=== PATIENT | male | born 1960 | race Two or more races ===

== ENCOUNTER 2019-03-14 17:24 | Inpatient (IN) | payer MEDICARE, OTHER ==
[~2019-03-14] VITALS: Ht 182.9 cm; Wt 78.0 kg
[2019-03-14] MEDS ORDERED: ACETAMINOPHEN 650 MG/SUPP.RECT RC ONE ×2 (17:30→17:51)
[2019-03-14] MEDS ORDERED: IV NS 0.9% 1,000 ML BAG IV ONE (17:30)
[2019-03-14] MEDS ORDERED: IPRATROPIUM NEB FS 0.5 MG/2.5 ML AMPUL.NEB ONE (17:38)
[2019-03-14] MEDS ORDERED: ALBUTEROL FS 2.5 MG/3 ML VIAL.NEB ONE (17:38)
--- NOTE | 2019-03-14 17:38 | NUR ---
BIB 39 FROM THE BUS STOP PT IS UNRESPONSIVE AND DROOLING, UKNOWN TIME. PATIENT UNRESPONSIVE, CLOTHING REMOVED, PATIENT'S SKIN FELT HOT. PATIENT CONNECTED TO THE MONITOR, IV LINE ESTABLISHED ON LEFT HAND BY PARAMEDICS, ANOTHER LINE ESTABLISHED. RECTAL TEMP SHOWS 104. WILL MONITOR.
[2019-03-14 17:46] LABS: BASOPHILS # (AUTO) 0.1 /CMM (0.0-0.2); BASOPHILS % (AUTO) 1.3 % (0.0-2.0); EOSINOPHILS % (AUTO) 3.3 % (0.0-6.0); HEMATOCRIT 36 % (39-51); HEMOGLOBIN 12.3 g/dL (13.5-17.5); LYMPHOCYTES # (AUTO) 1.2 /CMM (0.8-4.8); MEAN CORPUSCULAR HGB CONC 34 g/dl (31.0-36.0); MEAN CORPUSCULAR VOLUME 94 fL (80-96); MONOCYTES # (AUTO) 0.3 /CMM (0.1-1.30); MONOCYTES % (AUTO) 6.9 % (2.0-12.0); NEUTROPHILS # (AUTO) 2.2 /CMM (1.8-8.9); NEUTROPHILS % (AUTO) 56.5 % (43.0-81.0); PLATELET COUNT (AUTO) 115 /CMM (150-450); RED BLOOD CELL COUNT(AUTO) 3.82 MIL/uL (4.5-6.0); WHITE BLOOD COUNT (AUTO) 3.9 K/uL (4.3-11.0)
[2019-03-14 17:55] LABS: CALCIUM, SERUM 8.5 mg/dL (8.5-10.1); CARBON DIOXIDE 23 mmol/L (21-32); CHLORIDE 108 mmol/L (98-107); GLUCOSE 101 mg/dL (74-106); POTASSIUM 4.3 mmol/L (3.5-5.1); SODIUM SERUM 143 mmol/L (136-145); UREA NITROGEN, BLOOD 35 mg/dL (7-18)
--- NOTE | 2019-03-14 17:55 | NUR ---
COOLING MEASURES PROVIDED.
[2019-03-14 18:01] LABS: ALANINE AMINOTRANSFERASE 21 U/L (12-78); ALBUMIN 2.6 g/dL (3.4-5.0); ALKALINE PHOSPHATASE 81 U/L (46-116); ASPARTATE AMINOTRANSFERASE 22 U/L (15-37); BILIRUBIN,DIRECT 0.1 mg/dL (0.0-0.2); BILIRUBIN,TOTAL 0.3 mg/dL (0.2-1.0); TOTAL PROTEIN, SERUM 6.3 g/dL (6.4-8.2)
[2019-03-14] MEDS ORDERED: VANCOMYCIN 1 GM in IV D5W 250 ML IV ONE (18:30)
[2019-03-14] MEDS ORDERED: CEFTRIAXONE 1GM BAG (ER ONLY) 1 GM/50 ML PIGGYBACK IV ONE (18:30)
--- NOTE | 2019-03-14 18:30 | NUR ---
Patient seen by Dr. Hawtohrne, and discontinued the IV antibiotic. Patient more alert and verbally responsive. Able to remember the event before he passed out. Patient able to urinate on a urinal. Patient in stable condition.
[2019-03-14 18:31] LABS: APPEARANCE,URINE Clear (CLEAR); BILIRUBIN,URINE Negative (NEGATIVE); BLOOD, URINE Negative Ery/uL (NEGATIVE); COLOR,URINE Yellow (YELLOW); KETONES,URINE Negative (NEGATIVE); LEUKOCYTE ESTERASE ,URINE Negative (NEGATIVE); NITRITE, URINE Negative (NEGATIVE); PH,URINE 6.5 (5.0-8.0); PROTEIN,URINE Negative (NEGATIVE); UGLUCOSE Negative (NEGATIVE); UROBILINOGEN,URINE 0.2 EU/dL (0.2)
[2019-03-14] MEDS ORDERED: LORA1TAB PO (18:31)
[2019-03-14] MEDS ORDERED: INSU100V7 SQ (18:31)
[2019-03-14] MEDS ORDERED: OXYB10TA PO (18:31)
[2019-03-14] MEDS ORDERED: ARIP30TA3 PO (18:31)
[2019-03-14] MEDS ORDERED: CLOZ100T32 PO (18:31)
[2019-03-14] MEDS ORDERED: DIVA500T54 PO (18:31)
[2019-03-14] MEDS ORDERED: INSU100V27 SQ (18:31)
[2019-03-14] MEDS ORDERED: TAMS-12 PO (18:31)
--- NOTE | 2019-03-14 18:39 | NUR ---
PANEL ON-CALL PAGED
--- NOTE | 2019-03-14 19:32 | NUR ---
CALLED NURSING SUP REQUESTED TELE BED
--- NOTE | 2019-03-14 19:33 | NUR ---
CALLED NURSING SUP FOR TELE BED
--- NOTE | 2019-03-14 19:45 | NUR ---
ASSUMED CARE. RECEIVED REPORT FROM AM SHIFT [facility] PANIAG[facility]. PT RESTING QUIETLY, NO ACUTE DISTRESS NOTED, RESP EVEN AND UNLABORED. PT AAOX4. PT REMAINS ON CARDIAC MONITORING, CONTINUOUS POX. CALL LIGHT WITHIN REACH. WILL CONTINUE TO MONITOR PT CLOSELY. PT AWARE OF PENDING HOSPITAL ADMISSION AND AGREED. AWAIGINT BED AVAILABILITY.
--- NOTE | 2019-03-14 19:45 | NUR ---
PATIENT ENDORSED TO ED FOR ELIZABETH.
--- NOTE | 2019-03-14 20:08 | NUR ---
TELE 323-2
--- NOTE | 2019-03-14 20:20 | NUR ---
REPORT CALLED TO [facility]. WILL TRANSPORT PT VIA [facility]S PROTOCOL.
[2019-03-14 21:05] VITALS: BP 121/52
--- NOTE | 2019-03-14 21:07 | NUR ---
PT TRANSPORTED TO [place] [id number] VIA ACLS PROTOCOL.
--- NOTE | 2019-03-14 21:20 | NUR ---
RECEIVE PT AT 2105 VIA [facility] FROM [facility], PT A/O X 3, RESPIRATIONS EVEN AND UNLABORED. NO S/S OF DISTRESS AND STABLE TOLERATING ROOM AIR. NO COMPLAIN OF CHEST PAIN, HEADACHE AND N, V. HEAD TO TOE ASSESSMENT IS DONE. PER PT VERBALIZED HE HAS NO KNOWN ALLERGIES. KEPT CLEAN AND DRY AND COMFORTABLE SAFETY MEASURES AT ALL TIMES WILL CONT TO MONITOR.
--- NOTE | 2019-03-14 21:35 | NUR ---
PAGED SONA MOODY FOR ADMITTING ORDERS AWAITING CALL BACK
--- NOTE | 2019-03-14 22:00 | NUR ---
FF UP ADMITTING ORDERS
[2019-03-14] MEDS ORDERED: IV NS 0.9% 1,000 ML IV PRN (22:17)
[2019-03-14 22:30] VITALS: BP 121/52
[2019-03-14] MEDS ORDERED: MAGNESIUM HYDROXIDE 30 ML UDC PO PRN (22:30)
[2019-03-14] MEDS ORDERED: MAG HYDROX/AL HYDROX/SIMETH 30 ML UDC PO PRN (22:30)
[2019-03-14] MEDS ORDERED: ONDANSETRON HCL/PF 4 MG/2 ML VIAL IVP PRN (22:30)
[2019-03-14] MEDS ORDERED: LORAZEPAM 1 MG TABLET PO PRN (22:30)
[2019-03-14] MEDS ORDERED: ACETAMINOPHEN 325 MG TABLET PO PRN (22:30)
[2019-03-14] MEDS ORDERED: Z GUARD REMEDY 2 OZ OINT TP PRN (22:30)
[2019-03-14] MEDS ORDERED: DIVALPROEX SODIUM 500 MG TABLET.DR PO ONE (23:00)
[2019-03-14] MEDS ORDERED: OXYBUTYNIN CHLORIDE ER 5 MG TAB PO SCH (23:00)
[2019-03-15] VITALS: BP 113/73
[2019-03-15 04:00] VITALS: BP 119/68
--- NOTE | 2019-03-15 06:11 | NUR ---
ASLEEP AND EASILY AWAKEN, NO HYPERTHERMIA, TEMPERATURE WNL. NO SIGNIFICANT CHANGES THROUGHOUT THE SHIFT. RESPIRATION EVEN AND UNLABORED. ON CARDIAC MONITORING WITH SINUS BRADYCARDIA 60'S HR IN THE TELE MONITOR. KEPT CLEAN AND DRY AND COMFORTABLE. NEEDS ATTENDED AND ANTICIPATED, NURSING CARE RENDERED, NO C/O PAIN AT THIS TIME. OFFLOAD HEELS AND ELBOWS. SAFETY MEASURES AT ALL TIMES. ENDORSE TO THE NEXT SHIFT.
[2019-03-15 06:50] LABS: BASOPHILS % (AUTO) 0.3 % (0.0-2.0); EOSINOPHILS % (AUTO) 1.7 % (0.0-6.0); HEMATOCRIT 36 % (39-51); HEMOGLOBIN 12.3 g/dL (13.5-17.5); LYMPHOCYTES # (AUTO) 2.4 /CMM (0.8-4.8); LYMPHOCYTES % (AUTO) 41.5 % (20.0-44.0); MEAN CORPUSCULAR HGB CONC 34 g/dl (31.0-36.0); MEAN CORPUSCULAR VOLUME 95 fL (80-96); MONOCYTES # (AUTO) 0.7 /CMM (0.1-1.30); MONOCYTES % (AUTO) 11.7 % (2.0-12.0); NEUTROPHILS # (AUTO) 2.6 /CMM (1.8-8.9); NEUTROPHILS % (AUTO) 44.8 % (43.0-81.0); PLATELET COUNT (AUTO) 92 /CMM (150-450); RED BLOOD CELL COUNT(AUTO) 3.82 MIL/uL (4.5-6.0); WHITE BLOOD COUNT (AUTO) 5.8 K/uL (4.3-11.0)
--- NOTE | 2019-03-15 06:50 | NUR ---
Blood sugar checked at 48 mg/dl protocol initiated Laura gibbs ordered D50% IVP achs blood sugar less than 60.
[2019-03-15] MEDS ORDERED: DEXTROSE 10% IN WATER 250 ML BAG IV ONE (07:00)
[2019-03-15] MEDS ORDERED: DEXTROSE 10% IN WATER 250 ML IV ONE (07:00)
[2019-03-15] MEDS ORDERED: DEXTROSE 50%-WATER 50 ML DISP.SYRIN IV PRN (07:00)
[2019-03-15 07:08] LABS: CALCIUM, SERUM 7.8 mg/dL (8.5-10.1); CREATININE 1.4 mg/dL (0.6-1.3); MAGNESIUM 1.9 mg/dL (1.8-2.4); PHOSPHORUS 3.2 mg/dL (2.5-4.9); POTASSIUM 4.3 mmol/L (3.5-5.1)
[2019-03-15 07:09] LABS: THYROID STIMULATING HORMONE 1.802 uIU/mL (0.358-3.74)
--- NOTE | 2019-03-15 07:09 | NUR ---
IV D10% 250 as replacement of D50 per pharmacy infused will cont to monitor Addendum: 03/15/19 at 0721 by CELENA JAIN RN IV d10 % 250 ml IV infused per protocol as replacement D50 per pharmacy
--- NOTE | 2019-03-15 07:17 | NUR ---
Blood sugar 158 mg/dl
[2019-03-15] MEDS: INSULIN ASPART/LISPRO 100 UNIT/ML CARTRIDGE SQ SCH ×2 (07:30→12:00)
[2019-03-15] MEDS ORDERED: PANTOPRAZOLE 40 MG TABLET.DR PO SCH (07:30)
[2019-03-15 08:00] VITALS: BP 125/76
--- NOTE | 2019-03-15 08:00 | NUR ---
MS RN NOTES PATIENT IN BED RESTING NO SOB OR ACUTE DISTRESS NOTED. PATIENT ALERT, ORIENTED X3. DENIES ANY PAIN OR DISCOMFORT. BED IN LOW LOCKED POSITION. CALL LIGHT WITHIN REACH. WILL CONTINUE TO MONITOR.
[2019-03-15 08:39] LABS: BAND % (MANUAL) 1 % (0.0-5.0); LYMPHOCYTES % (MANUAL) 41 % (16-48); MONOCYTES % (MANUAL) 14 % (0-11.0); NEUTROPHILS % (MANUAL) 44 (42-76)
[2019-03-15] MEDS ORDERED: ARIPIPRAZOLE 5 MG TABLET PO SCH (09:00)
--- NOTE | 2019-03-15 10:51 | NUR ---
WOUND CARE CONSULT: PT IS CONTINENT AND INDEPENDENT WITH BED MOBILITY AND PRESENTS WITH DRY ABRASIONS TO LEFT KNEE, PRESENT ON ADMISSION. WILL SEE PRN.
--- NOTE | 2019-03-15 12:38 | NUR ---
Social service consult requested by RAYMOND Loza for placement. Pt. is a 58 year old male who was admitted to [facility] for heat stroke. Pt. was found outside a bus stop in 104 Fahrenheit heat, and was noted to be unresponsive by concerned bystander. SW met with pt. bedside. Pt. appears well-groomed. Pt. is alert and oriented x 3 and was sitting upright on his bed. Pt's mood is congruent. Pt. states he lives at a board and care located at [address] [place] [address], in [place]. The laboratory apparatus glass blower of the [facility] is Evan Granger, who is also pt's emergency contact . Pt. has been living at his board and care since 2010. Pt. states he would like to move out of there and rent a single room. Pt. receives $1100 in SSI month. Pt. has a extensive psychiatric history. Pt. has a psychiatric diagnosis of Schizoaffective and take Clozaril and Depakote. Pt. is compliant with his medication. Pt. sees his psychiatrist Dr. Bullard once a month. Dr. Bullard is located at [address] in [facility]. . Pt. has a history of psychiatric hospitalizations. The most recent psychiatric hospitalization was a year ago at [facility]. Pt. denies any suicidal and homicidal ideations and visual/auditory hallucinations at this time. Pt. is pending a psychiatric evaluation. No other social service needs are requested at this time. SW is available, if needed.
[2019-03-15 16:00] VITALS: BP 119/80
--- NOTE | 2019-03-15 16:20 | NUR ---
MS RN NOTES PATIENT DISCHARGED TO [facility]. DISCHARGE INSTRUCTIONS PROVIDED TO PATIENT VERBALIZED UNDERSTANDING. PATIENT REQUESTED CLOTHS, PROVIDED CLOTHS FOR DISCHARGE. DISCHARGE PROTOCOL FOLLOWED. ALL BELONGINGS ACCOUNTED FOR, BELONGING LIST SIGNED. MD AWARE OF ABNORMAL LABS AND TESTS. PERIPHERAL IV REMOVED WITH MINIMAL BLEEDING. ID BAND REMOVED. PROVIDED PATIENT WITH TAXI AND VOUCHER. ESCORTED TO TAXI. [facility] MADE AWARE OF PATIENT DISCHARGE.
[2019-03-15] MEDS ORDERED: DIVALPROEX SODIUM 500 MG TABLET.DR PO SCH (22:00)
[2019-03-15] MEDS ORDERED: CLOZAPINE 100 MG TABLET PO SCH (22:00)
[2019-03-15] MEDS ORDERED: TAMSULOSIN 0.4 MG CAP.SR.24H PO SCH (22:00)
[2019-03-15] MEDS ORDERED: INSULIN GLARGINE, 100 UNIT/ML CARTRIDGE SQ SCH (22:00)
== END 2019-03-15 16:20 | disposition home or self-care (01) | DRG 922 ==
LOC: ER 17:24 → TELE 20:08 → MED 03-15 09:16
PROVIDERS: ADMIT Registered Nurse; ATTEND Nurse Practitioner Acute Care
DX: T67.0XXA Heatstroke and sunstroke, initial encounter (principal); N17.0 Acute kidney failure with tubular necrosis; E44.0 Moderate protein-calorie malnutrition; X30.XXXA Exposure to excessive natural heat, initial encounter; E86.0 Dehydration; Y92.521 Bus station as the place of occurrence of the external cause; F41.9 Anxiety disorder, unspecified; N32.81 Overactive bladder; F25.9 Schizoaffective disorder, unspecified; Z79.4 Long term (current) use of insulin; Z79.899 Other long term (current) drug therapy; R50.9 Fever, unspecified; I70.0 Atherosclerosis of aorta; F32.9 Major depressive disorder, single episode, unspecified; I95.9 Hypotension, unspecified; E11.649 Type 2 diabetes mellitus with hypoglycemia without coma; R55 Syncope and collapse; M77.9 Enthesopathy, unspecified
CPT/HCPCS: 36415; 70450-TC; 71045-TC; 80048-TC; 80061-TC; 80076-TC; 81000-TC; 82962-TC; 83605-TC; 83735-TC; 84100-TC; 84443-TC; 84484-TC; 85025-TC; 85730-TC; 87040-TC; 87081-TC; 87086-TC; 93307-TC; 97116-TC; 97530-TC; G0378; J1815; J3490; J7030; J7040